=== PATIENT | female | born 1960 | race Caucasian/White ===

== ENCOUNTER 2020-08-01 04:58 | Emergency (ER) | payer OTHER ==
[~2020-08-01] VITALS: Ht 170.2 cm; Wt 109.0 kg
--- NOTE | 2020-08-01 05:13 | PHYS DOC ---
Adult General HPI HPI Patient is a 59-year-old female who presents with a chief complaint of lower abdominal pain and blood in the stool. States she had an appendectomy 5 days ago at [facility] and was doing well up until yesterday. States that about 5 PM she had a bright red bloody stool with abdominal cramping 5 out of 10, abdominal achy in nature. States she is never had this happen before. States she is not on blood thinners. States that since then every still has had bright red blood in it. Denies any history of hemorrhoids or rectal trauma. Denies any recent travel, illnesses, chest pain, shortness of breath, nausea, vomiting, dysuria, hematuria. (ARIANA MARTIN MD) Review of Systems Review of Systems Review of systems otherwise unremarkable except noted in HPI (ARIANA MARTIN MD) Physical Exam Physical Exam Constitutional: Well developed, well nourished, no acute distress, non-toxic appearance. [] HENT: Normocephalic, atraumatic, bilateral external ears normal, oropharynx moist, no oral exudates, nose normal. [] Eyes: conjunctiva normal, no discharge. [] Neck: Normal range of motion, no tenderness, supple, no stridor. [] Cardiovascular:Heart rate regular rhythm, no murmur [] Lungs & Thorax: Bilateral breath sounds clear to auscultation [] Abdomen: soft, lower abdominal tenderness to palpation with no guarding or rebound, no masses, no pulsatile masses. [] Skin: Warm, dry, no erythema, no rash. [] Back: no CVA tenderness. [] Extremities: No tenderness, no cyanosis, no clubbing, ROM intact, no edema. [] Neurologic: Alert and oriented X 3, normal motor function, normal sensory function, no focal deficits noted. [] Psychologic: Affect normal, judgement normal, mood normal. [] (ARIANA MARTIN MD) Current Patient Data Vital Signs Vital Signs Date Time Temp Pulse Resp B/P (MAP) Pulse Ox O2 Delivery O2 Flow Rate FiO2 08/01/20 05:05 99.2 102 22 127/71 (89) 93 Room Air Vital Signs Date Time Temp Pulse Resp B/P (MAP) Pulse Ox O2 Delivery O2 Flow Rate FiO2 08/01/20 05:05 99.2 102 22 127/71 (89) 93 Room Air Lab Results Laboratory Tests Test 08/01/20 05:30 08/01/20 05:40 08/01/20 06:30 White Blood Count 21.7 x10^3/uL Red Blood Count 4.08 x10^6/uL Hemoglobin 12.2 g/dL Hematocrit 36.4 % Mean Corpuscular Volume 89 fL Mean Corpuscular Hemoglobin 30 pg Mean Corpuscular Hemoglobin Concent 34 g/dL Red Cell Distribution Width 12.8 % Platelet Count 215 x10^3/uL Neutrophils (%) (Auto) 80 % Lymphocytes (%) (Auto) 12 % Monocytes (%) (Auto) 6 % Eosinophils (%) (Auto) 1 % Basophils (%) (Auto) 1 % Neutrophils # (Auto) 17.3 x10^3uL Lymphocytes # (Auto) 2.5 x10^3/uL Monocytes # (Auto) 1.3 x10^3/uL Eosinophils # (Auto) 0.3 x10^3/uL Basophils # (Auto) 0.2 x10^3/uL Segmented Neutrophils % 84 % Band Neutrophils % 4 % Lymphocytes % 9 % Monocytes % 2 % Eosinophils % 1 % Platelet Estimate Adequate Sodium Level 142 mmol/L Potassium Level 3.4 mmol/L Chloride Level 105 mmol/L Carbon Dioxide Level 24 mmol/L Anion Gap 13 Blood Urea Nitrogen 24 mg/dL Creatinine 0.9 mg/dL Estimated GFR (Cockcroft-Gault) 63.9 BUN/Creatinine Ratio 27 Glucose Level 126 mg/dL Calcium Level 9.4 mg/dL Total Bilirubin 0.5 mg/dL Aspartate Amino Transf (AST/SGOT) 15 U/L Alanine Aminotransferase (ALT/SGPT) 20 U/L Alkaline Phosphatase 88 U/L Total Protein 7.0 g/dL Albumin 3.2 g/dL Albumin/Globulin Ratio 0.8 Lipase 75 U/L Stool Occult Blood Positive Prothrombin Time 10.4 SEC Prothromb Time International Ratio 1.0 Current Medications Medications (Trade) Dose Ordered Sig/Riam Route PRN Reason Start Time Stop Time Status Last Admin Dose Admin Fentanyl Citrate (Fentanyl 2ml Vial) 50 mcg 1X ONCE IVP 08/01/20 05:45 08/01/20 05:46 DC 08/01/20 05:52 Iohexol (Omnipaque 300 Mg/ml) 75 ml 1X ONCE IV 08/01/20 05:45 08/01/20 05:46 DC 08/01/20 06:03 Info (Do NOT chart on this entry -- for MONITORING) 1 each PRN DAILY PRN MC SEE COMMENTS 08/01/20 05:45 08/03/20 05:44 Ondansetron HCl (Zofran) 4 mg 1X ONCE IVP 08/01/20 06:00 08/01/20 06:01 DC 08/01/20 05:52 Ondansetron HCl (Zofran) 4 mg STK-MED ONCE .ROUTE 08/01/20 05:46 08/01/20 05:46 DC Sodium Chloride 1,000 ml @ 1,000 mls/hr 1X ONCE IV 08/01/20 06:45 08/01/20 07:44 (MAKENNA OCONNOR DO) EKG EKG [] (ARIANA MARTIN MD) Radiology/Procedures Radiology/Procedures [] (ARIANA MARTIN MD) Radiology/Procedures Abdominal and Pelvis CT, with Contrast: History: Reason: lower ab pain, blood in stool, OMNI 300, 75ml Comparison: None. Procedure: Axial images are obtained of the abdomen and pelvis, after the administration of 75 cc of Omni 300 IV or oral contrast. Oral Contrast: No Findings: Linear opacities in the lung bases be discoid atelectasis or scar. There is moderate wall thickening of the left colon with minimal surrounding inflammation. There is air within the subcutaneous abdominal wall. There is been prior cholecystectomy. There is been prior appendectomy. Liver: Normal. Spleen: Normal. Pancreas: Normal. Adrenal Glands: Normal. Kidneys: Normal. There is no free air or free fluid. There is no lymphadenopathy. The urinary bladder appears normal. There is no pericolonic inflammation identified. Impression: 1. Left-sided colitis. This could be inflammatory such as ulcerative colitis or could be infectious such as ulcerative colitis. There is no diverticulitis. There is no air in the wall consistent ischemic colitis. 2. Anterior abdominal wall subcutaneous emphysema. Correlate with possible trauma or surgical procedure. End impression PQRS Compliance Statement: One or more of the following individualized dose reduction techniques were utilized for this examination: 1. Automated exposure control 2. Adjustment of the mA and/or kV according to patient size 3. Use of iterative reconstruction technique Electronically signed by: Laurent Chapin III, MD (08/01/2020 6:26 AM) [facility] (ANASTASIAMAKENNA DO) Heart Score C/O Chest Pain: No Risk Factors: Risk Factors: DM, Current or recent (<one month) smoker, HTN, HLP, family history of CAD, obesity. Risk Scores: Risk Factors: DM, Current or recent (<one month) smoker, HTN, HLP, family history of CAD, obesity. (ARIANA MARTIN MD) Course & Med Decision Making Course & Med Decision Making Patient is a 5-year-old female who presents with lower abdominal pain, cramping and blood in the stool Vital signs notable for tachycardia. Physical exam noted above. Given pain medication. Laboratory analysis and CT pending. Patient care transferred to day team. [] (ARIANA MARTIN MD) Course & Med Decision Making I assumed care of patient after comprehensive signout by off going physician Personally saw the patient and repeated certain aspects of history and physical exam. Postop day 5 status post appendectomy. Has been on Augmentin since. Proximately 24 hours ago started having bright red blood per rectum, reports ~5- 7 bloody stools since Lives at home with but he is out of town, daughter has been staying with her. Feels weak, symptomatic. ER work-up reviewed, concerning for colitis, inflammatory versus infectious. No history of this, history of diverticulosis only per prior colonoscopy, no autoimmune history I discussed case with hospitalist at [facility] who agreed need to start IV antibiotics and transfer for higher acuity of care and potential need for specialist/GI consultation I updated patient and daughter on proposed plan of care that involved transfer for IV fluid rehydration, IV antibiotic administration, consideration for steroids and other diagnostic stool studies and potential specialist consult ation. They were amenable. 1 L IV normal saline and 3.75 g Zosyn started, lactic acid and x2 blood cultures drawn prior to ER transfer. Has not produce stool in ER for studies to be performed All questions and concerns addressed prior to ER transport via EMS to [facility] for admission Critical Care Time This patient required critical care. Due to the fact that the patient required a significant amount of one on one physician - patient contact time, ordering and review of studies, arranging urgent treatment with development of a management plan, evaluation of patients response to treatment with frequent reassessments, and discussions with other providers this patient required 35 minutes of critical care time. Critical care time was indicated due to the inherent instability and/or potential for instability in this patient. The critical care time that is allocated to this patient is above and beyond any time spent on any other billable procedures performed on this patient. (MAKENNA OCONNOR DO) Dragon Disclaimer Dragon Disclaimer This electronic medical record was generated, in whole or in part, using a voice recognition dictation system. (ARIANA MARTIN MD) Departure Departure: Impression: Primary Impression: Colitis Disposition: 02 DC/TRF OTHER SHORT TERM HOS (community hospital) Admitting Physician: Anjelica Braga (MAKENNA OCONNOR DO) Condition: STABLE Referrals: NON,STAFF (PCP) ARIANA MARTIN MD Aug 01, 2020 05:13 MAKENNA OCONNOR DO Aug 01, 2020 06:35
[2020-08-01] MEDS ORDERED: CONTRAST GIVEN. MC PRN (05:45)
[2020-08-01] MEDS ORDERED: IOHEXOL 300 MG/ML 75 ML VIAL. IV ONE (05:45)
[2020-08-01] MEDS ORDERED: ONDANSETRON PF 4 MG/2 ML VIAL. ONE (05:46)
[2020-08-01 05:47] LABS: BASO # 0.2 x10^3/uL (0.0-0.2); BASO % 1 % (0-3); EOS # 0.3 x10^3/uL (0.0-0.7); EOS % 1 % (0-3); HEMATOCRIT 36.4 % (36.0-47.0); HEMOGLOBIN 12.2 g/dL (12.0-15.5); LYMPH # 2.5 x10^3/uL (1.0-4.8); LYMPH % 12 % (24-48); MEAN CORPUSCULAR HEMOGLOBIN 30 pg (25-35); MEAN CORPUSCULAR HGB CONC 34 g/dL (31-37); MEAN CORPUSCULAR VOLUME 89 fL (79-100); MONO # 1.3 x10^3/uL (0.0-1.1); MONO % 6 % (0-9); NEUT # 17.3 x10^3uL (1.8-7.7); NEUT % 80 % (31-73); PLATELET COUNT 215 x10^3/uL (140-400); RED BLOOD COUNT 4.08 x10^6/uL (3.50-5.40); RED CELL DISTRIBUTION WIDTH 12.8 % (11.5-14.5); WHITE BLOOD COUNT 21.7 x10^3/uL (4.0-11.0)
[2020-08-01 05:54] LABS: CALCIUM 9.4 mg/dL (8.5-10.1); CREATININE 0.9 mg/dL (0.6-1.0); GFR 63.9; POTASSIUM 3.4 mmol/L (3.5-5.1)
[2020-08-01 06:00] LABS: ALBUMIN 3.2 g/dL (3.4-5.0); ALBUMIN/GLOBULIN RATIO 0.8 (1.0-1.7); TOTAL BILIRUBIN 0.5 mg/dL (0.2-1.0)
[2020-08-01] MEDS ORDERED: ONDANSETRON PF 4 MG/2 ML VIAL. IVP ONE (06:00)
[2020-08-01 06:07] LABS: % BANDS 4 % (0-9); % EOS 1 % (0-5); % LYMPHS 9 % (24-48); % MONOS 2 % (0-10); % SEGS 84 % (35-66); PLT ESTIMATE ADEQUATE (ADEQUATE)
[2020-08-01 06:10] LABS: FECAL OB PT POSITIVE (NEG)
--- NOTE | 2020-08-01 06:28 | RAD ---
Abdominal and Pelvis CT, with Contrast: History: Reason: lower ab pain, blood in stool, OMNI 300, 75ml Comparison: None. Procedure: Axial images are obtained of the abdomen and pelvis, after the administration of 75 cc of Omni 300 IV or oral contrast. Oral Contrast: No Findings: Linear opacities in the lung bases be discoid atelectasis or scar. There is moderate wall thickening of the left colon with minimal surrounding inflammation. There is air within the subcutaneous abdominal wall. There is been prior cholecystectomy. There is been prior appendectomy. Liver: Normal. Spleen: Normal. Pancreas: Normal. Adrenal Glands: Normal. Kidneys: Normal. There is no free air or free fluid. There is no lymphadenopathy. The urinary bladder appears normal. There is no pericolonic inflammation identified. Impression: 1. Left-sided colitis. This could be inflammatory such as ulcerative colitis or could be infectious s uch as ulcerative colitis. There is no diverticulitis. There is no air in the wall consistent ischemi c colitis. 2. Anterior abdominal wall subcutaneous emphysema. Correlate with possible trauma or surgical procedu re. End impression PQRS Compliance Statement: One or more of the following individualized dose reduction techniques were utilized for this examinat ion: 1. Automated exposure control 2. Adjustment of the mA and/or kV according to patient size 3. Use of iterative reconstruction technique Electronically signed by: Laurent Chapin III, MD (08/01/2020 6:26 AM) [facility]
[2020-08-01] MEDS ORDERED: IV NORMAL SALINE 1,000ML 1,000 ML IV ONE (06:45)
[2020-08-01] MEDS ORDERED: PIPERACILLIN/TAZOBACTAM 3.375 GM in IV NORMAL SALINE 50ML 50 ML IV ONE (07:00)
[2020-08-01] MEDS ORDERED: PIPERACILLIN/TAZOBACTAM 3.375 GM VIAL IV ONE (07:33)
[2020-08-01] MEDS ORDERED: IV NORMAL SALINE 50ML 50 ML ONE (07:33)
[2020-08-01 08:30] VITALS: BP 112/72
== END 2020-08-01 10:04 | disposition short-term general hospital (02) ==
LOC: ER 04:58
DX: K52.9 Noninfective gastroenteritis and colitis, unspecified (principal); Z90.49 Acquired absence of other specified parts of digestive tract
CPT/HCPCS: 36415; 74177; 80053; 82274; 83605; 83690; 85007; 85025; 85610; 87040; 96365; 96366; 96375; 99285; J2405; J2543; J3010; J7030; Q9967